=== PATIENT | female | born 1975 | race Caucasian/White ===

== ENCOUNTER 2017-07-15 17:22 | Emergency (ER) | payer BC | END 2017-07-15 17:49 | disposition home or self-care (01) | LOC: SCSER 17:22 | DX: M54.2 Cervicalgia (principal) | CPT/HCPCS: 99283 ==

== ENCOUNTER 2018-01-24 13:04 | Outpatient (CLI) | payer BC | END 2018-01-24 13:05 | disposition home or self-care (01) | LOC: BICMAMMO 13:04 | PROVIDERS: ATTEND Obstetrics & Gynecology | DX: Z12.31 Encounter for screening mammogram for malignant neoplasm of breast (principal); Z80.3 Family history of malignant neoplasm of breast | CPT/HCPCS: 77063; 77067 ==

== ENCOUNTER 2018-03-01 09:11 | Outpatient (CLI) | payer BC ==
[2018-03-01 11:19] LABS: #Eosinphils 0.1 thou/uL (0.0-0.7); #Lymphocytes 1.4 thou/uL (1.20-3.40); #Monocytes 0.3 thou/uL (0.11-0.59); #Neutrophils 1.6 thou/uL (1.40-6.50); %Eosinophils 4.2 % (0.0-10.0); %Monocytes 7.9 % (0.0-10.0); Hemoglobin 13.7 g/dL (12.0-16.0); Mean Corpuscular HGB CONC 31.8 g/dL (32.0-36.0); Mean Corpuscular Hemoglobin 29.3 pg (27.0-31.0); Mean Corpuscular Volume 92.2 fL (78.0-98.0); Mean Platelet Volume 9.5 fL (7.4-10.4); Platelet Count 154 thou/uL (130-400); RBC Distribution Width 12.2 % (11.5-14.5); Red Blood Cell (RBC) Count 4.69 mill/uL (4.20-5.40); White Blood Cell (WBC) Count 3.5 thou/uL (4.8-10.8)
[2018-03-01 11:26] LABS: BHCG - Serum Negative (NEGATIVE); Pregs Control Background? CLEAR/WHITE (CLR/WHITE); Pregs Control Bar Appear? YES (CONTROL BAR)
[2018-03-01 11:38] LABS: ALT (SGPT) 9 U/L (8-55); AST (SGOT) 18 U/L (5-34); Albumin 4.6 g/dL (3.5-5.0); Alkaline Phosphatase 41 U/L (40-150); Anion Gap 11 mmol/L (10-20); BUN (Urea Nitrogen) 12 mg/dL (7.0-18.7); Bilirubin, Total 0.7 mg/dL (0.2-1.2); Calc. Creatinine Clearance 0 mL/min (70-130); Calcium 9.7 mg/dL (7.8-10.44); Carbon Dioxide 28 mmol/L (22-29); Chloride 103 mmol/L (98-107); Estimated GFR-MDRD 81; Glucose 76 mg/dL (70-105); Protein, Total 7.6 g/dL (6.0-8.3); Sodium 138 mmol/L (136-145)
== END 2018-03-01 09:12 | disposition home or self-care (01) ==
LOC: LABBT 09:11
PROVIDERS: ATTEND Specialist
DX: Z01.812 Encounter for preprocedural laboratory examination (principal); C50.911 Malignant neoplasm of unspecified site of right female breast; Z17.0 Estrogen receptor positive status [ER+]
CPT/HCPCS: 80053; 84703; 85025

== ENCOUNTER 2018-03-06 07:57 | Day surgery (SDC) | payer BC ==
[2018-03-01 09:41] VITALS: BMI 20.8
[2018-03-06] MEDS ORDERED: Ketorolac Tromethamine 30 MG/ML VIAL ONE (09:37)
[2018-03-06] MEDS ORDERED: CEFAZOLIN/Water 2 GM/20 ML SYRINGE ONE (09:37)
--- NOTE | 2018-03-06 10:01 | NM ---
RIGHT BREST LYMPHOSCINTIGRAPHY: INDICATION: Malignant neoplasm right female breast. RADIOPHARMACEUTICAL: 0.405 mCi Technetium 99m filtered SC subcutaneous. TECHNIQUE: Four separate aliquots utilizing a total of 0.405 mCi of Technetium 99m filtered SC SQ was administer ed around the right nipple-areolar complex. The injections were massaged by the patient. Planar danielle ges were obtained until identification of 1 right lateral intramammary lymph node and 2 separate ante rior right axillary lymph nodes. IMPRESSION: 1. Successful lymphoscintrigraphy of the right breast. 2. Radiotracer accumulation within a far right lateral intramammary lymph node and two anterior right axillary lymph nodes. POS: [facility]
[2018-03-06] MEDS ORDERED: Bupivacaine/Epinephrine 0.25% 30 ML VIAL ONE ×2 (11:34→13:26)
[2018-03-06] MEDS ORDERED: Isosulfan Blue 50 MG/5 ML VIAL ONE (12:08)
[2018-03-06] MEDS ORDERED: PROPOFOL 200 MG/20 ML VIAL ONE (12:21)
[2018-03-06] MEDS ORDERED: Ondansetron HCl/PF 4 MG/2 ML Vial ONE (12:21)
[2018-03-06] MEDS ORDERED: Lidocaine 1% PF 5 ML VIAL ONE (12:21)
[2018-03-06] MEDS ORDERED: Fentanyl 100 MCG/2 ML VIAL ONE (12:22)
[2018-03-06] MEDS ORDERED: Promethazine HCl 25 MG/ML VIAL ONE (15:37)
--- NOTE | 2018-03-07 11:01 | OP ---
DATE OF PROCEDURE: 03/06/2018 PREOPERATIVE DIAGNOSIS: Right breast cancer. POSTOPERATIVE DIAGNOSIS: Right breast cancer. OPERATION PERFORMED: Right ultrasound-guided lumpectomy, right axillary sentinel lymph node biopsy, oncoplastic closure with 100 cm2 rotation flap. SURGEON: Theodore Grubbs M.D. ANESTHESIA: General endotracheal. INDICATIONS: The patient is a 42-year-old white female. She was diagnosed with clinical stage I rig ht breast cancer. The cancer; however, is in the far upper pole of her right breast at about the 12 o'clock radian. I have therefore recommended excision with oncoplastic closure in order to be able t o rotate tissue into the defect. DESCRIPTION OF OPERATION: Informed consent was obtained. The patient was taken to the operating abril m. She had already undergone lymphoscintigraphy which identified sentinel lymph nodes. The right br east was infiltrated with 3 mL of Lymphazurin with massage of the breast for 5 minutes. The right br east and axilla were then prepped with ChloraPrep and draped in sterile fashion. The incisions were marked on the skin and local anesthetic was infiltrated using 0.25% Marcaine with epinephrine. The area of the malignancy in the upper right breast which was marked on the skin as well in order to appropriately fashion the incisions for the excision of the lesion. An incision was created that was an arcing incision from the axilla to the 12 o'clock radian that was about 12 cm in length. I then created a triangular incision overlying the malignancy that was 8 cm on its legs and 5 cm across the base. Finally, I created a triangular incision in the axilla that wa s also 5 cm in its base and the legs were between 5 and 6 cm extending laterally towards the posterio r axilla. Attention was then turned to the axilla. The skin and the triangular dart in the axilla was excised. Neoprobe was utilized to identify areas of maximum radio intensity within the axilla. Dissection w ithin the axilla revealed 3 separate lymph nodes that were both radial intense and stained with blue dye. These were each isolated, dissected circumferentially, and excised. All investing lymphatics w ere divided between clamps and 3-0 silk ties. There were no other areas of significant radioactivity within the axilla. Attention was then turned to the area of the malignancy. The triangle incorporating the malignancy w as excised onto the fascia. The fascia was then excised in continuity with the tissue due to the dep th of the lesion. The specimen was removed intact and tagged for orientation. There was no evidence of visible or palpable malignancy in any margin. The arcing incision was then dissected down to the fascia and the matrix of the breast tissue was lowell vated off the underlying pectoral fascia widely extending inferiorly. The axillary tissue was also m obilized laterally. Efforts were made to avoid dividing all lymphatics between the breast and the ax illa. After full mobilization, closure was performed by rotating the breast tissue in a clockwise fashion. The deep layers were closed with interrupted sutures of 3-0 Vicryl followed by running sutures of 3- 0 Vicryl. The skin edges approximated with running subcuticular suture of 4-0 Monocryl. A 10-Cypriot round fluted drain was placed in the space between the breast and the pectoralis and brought out lat erally and secured with 3-0 nylon suture. Dermabond was placed over all skin incisions. Sadiq wrap wa s placed for compression. There were no complications. Blood loss was minimal. The patient tolerat ed the procedure well and was taken to recovery room in stable condition.
== END 2018-03-06 16:28 | disposition home or self-care (01) ==
LOC: SDC 07:57
PROVIDERS: ATTEND Specialist
PROC: 07B50ZX Excision of Right Axillary Lymphatic, Open Approach, Diagnostic (ICD-10-PCS; principal; 2018-03-06)
PROC: 0HBT0ZZ Excision of Right Breast, Open Approach (ICD-10-PCS; principal; 2018-03-06)
PROC: 0HRT07Z Replacement of Right Breast with Autologous Tissue Substitute, Open Approach (ICD-10-PCS; principal; 2018-03-06)
PROC: 0JX60ZC Transfer Chest Subcutaneous Tissue and Fascia with Skin, Subcutaneous Tissue and Fascia, Open Approach (ICD-10-PCS; principal; 2018-03-06)
DX: C50.811 Malignant neoplasm of overlapping sites of right female breast (principal); G43.909 Migraine, unspecified, not intractable, without status migrainosus; Z79.899 Other long term (current) drug therapy; Z17.0 Estrogen receptor positive status [ER+]
CPT/HCPCS: 78195; 88305; 88307; 88333; 88334; 88342; 96374; A9541; J0131; J1885; J2001; J2405; J2550; J2704; J3010; Q9968

== ENCOUNTER 2018-07-07 10:37 | Outpatient (CLI) | payer BC ==
--- NOTE | 2018-07-07 12:39 | CT ---
CT SINUSES PERFORMED WITHOUT CONTRAST ENHANCEMENT: HISTORY: Chronic sinusitis. FINDINGS: The frontal sinuses are clear. The frontal recess regions are normal. The uncinate process is elongated. Low lying anterior ethmoid air cells contribute to some mild osti omeatal complex narrowing. There is no evidence of any mucosal change related to the maxillary sinus es. The posterior ethmoid air cells, the sphenoid sinuses, and the sphenoethmoid recess regions are clear. IMPRESSION: 1. No evidence of any mucosal disease or air-fluid levels. 2. Slightly narrowed ostiomeatal complex. POS: [facility]
== END 2018-07-07 10:38 | disposition home or self-care (01) ==
LOC: SCSCT 10:37
PROVIDERS: ATTEND Allergy & Immunology
DX: J32.9 Chronic sinusitis, unspecified (principal)

== ENCOUNTER 2019-03-06 08:08 | Outpatient (CLI) | payer BC ==
--- NOTE | 2019-03-06 08:48 | MMO ---
Bilateral MAMMO Bilat Diag DDI+JAE. CLINICAL HISTORY: Patient is 43 years old and is seen for diagnostic exam. The patient has the following family history of breast cancer: mother, at age 59. The patient has a history of malignant (generic) in the right breast in February,. The patient has a history of right Excisional Biopsy in 2018 - malignant. VIEWS: The views performed were: bilateral craniocaudal with tomosynthesis; bilateral mediolateral oblique with tomosynthesis; and bilateral mediolateral with tomosynthesis. FILMS COMPARED: The present examination has been compared to prior imaging studies performed at [facility] on 01/24/2018 and 02/10/2018. This study has been interpreted with the assistance of computer-aided detection. MAMMOGRAM FINDINGS: The breasts are heterogeneously dense, which could obscure a lesion on mammography. There is an area of skin thickening, an area of trabecular thickening, an area of architectural distortion and a post-surgical scar seen in the right breast. There are no suspicious masses, suspicious calcifications, or new areas of architectural distortion. IMPRESSION: THERE IS NO MAMMOGRAPHIC EVIDENCE OF MALIGNANCY. THE PATIENT WAS INFORMED OF THE EXAM RESULTS. A ROUTINE FOLLOW-UP MAMMOGRAM IN 1 YEAR IS RECOMMENDED. THE RESULTS OF THIS EXAM WERE SENT TO THE PATIENT. ACR BI-RADS Category 2 - Benign finding MAMMOGRAPHY NOTE: 1. A negative mammogram report should not delay a biopsy if a dominant of clinically suspicious mass is present. 2. Approximately 10% to 15% of breast cancers are not detected by mammography. 3. Adenosis and dense breasts may obscure an underlying neoplasm. Reported by: HOLLIS GAMBINO MD Electonically Signed: [id number]
== END 2019-03-06 08:09 | disposition home or self-care (01) ==
LOC: BICMAMMO 08:08
PROVIDERS: ATTEND Specialist
DX: C50.911 Malignant neoplasm of unspecified site of right female breast (principal)
CPT/HCPCS: 77066; G0279

== ENCOUNTER 2020-03-07 09:20 | Outpatient (CLI) | payer BC ==
--- NOTE | 2020-03-07 09:54 | MMO ---
Bilateral MAMMO Bilat Diag DDI+JAE. CLINICAL HISTORY: Patient is 44 years old and is seen for diagnostic exam. The patient has the following family history of breast cancer: mother, at age 59. The patient has a history of malignant (generic) in the right breast in February,. The patient has a history of right Excisional Biopsy in 2018 - malignant. VIEWS: The views performed were: bilateral craniocaudal with tomosynthesis; bilateral mediolateral oblique with tomosynthesis; and bilateral mediolateral with tomosynthesis. FILMS COMPARED: The present examination has been compared to prior imaging studies performed at [facility] on 01/24/2018, 02/10/2018 and 03/06/2019. This study has been interpreted with the assistance of computer-aided detection. MAMMOGRAM FINDINGS: The breasts are heterogeneously dense, which could obscure a lesion on mammography. There is a stable area of skin thickening and a stable post operative change seen in the right breast. There are no suspicious masses, suspicious calcifications, or new areas of architectural distortion. IMPRESSION: THERE IS NO MAMMOGRAPHIC EVIDENCE OF MALIGNANCY. THE FINDINGS AND RECOMMENDATIONS WERE DISCUSSED WITH THE PATIENT PRIOR TO HER LEAVING THE CENTER. A ROUTINE FOLLOW-UP MAMMOGRAM IN 1 YEAR IS RECOMMENDED. THE RESULTS OF THIS EXAM WERE SENT TO THE PATIENT. ACR BI-RADS Category 2 - Benign finding MAMMOGRAPHY NOTE: 1. A negative mammogram report should not delay a biopsy if a dominant of clinically suspicious mass is present. 2. Approximately 10% to 15% of breast cancers are not detected by mammography. 3. Adenosis and dense breasts may obscure an underlying neoplasm. Reported by: HOLLIS GAMBINO MD Electonically Signed: [id number]
== END 2020-03-07 09:21 | disposition home or self-care (01) ==
LOC: BICMAMMO 09:20
PROVIDERS: ATTEND Specialist
DX: C50.911 Malignant neoplasm of unspecified site of right female breast (principal)
CPT/HCPCS: 77066; G0279

== ENCOUNTER 2021-03-09 08:12 | Outpatient (CLI) | payer BC | END 2021-03-09 08:13 | disposition home or self-care (01) | LOC: BICMAMMO 08:12 | PROVIDERS: ATTEND Specialist | DX: Z08 Encounter for follow-up examination after completed treatment for malignant neoplasm (principal); Z85.3 Personal history of malignant neoplasm of breast | CPT/HCPCS: 77066; G0279 ==

== ENCOUNTER 2022-03-10 08:44 | Outpatient (CLI) | payer BC | END 2022-03-10 08:45 | disposition home or self-care (01) | LOC: BICMAMMO 08:44 | PROVIDERS: ATTEND Specialist | DX: Z12.31 Encounter for screening mammogram for malignant neoplasm of breast (principal); Z80.3 Family history of malignant neoplasm of breast; Z85.3 Personal history of malignant neoplasm of breast; Z91.89 Other specified personal risk factors, not elsewhere classified | CPT/HCPCS: 77063; 77067 ==

== ENCOUNTER 2022-03-24 10:08 | Outpatient (CLI) | payer BC ==
[2022-03-24 15:16] LABS: #Eosinphils 0.1 thou/uL (0.0-0.7); #Lymphocytes 1.7 thou/uL (1.20-3.40); #Monocytes 0.4 thou/uL (0.11-0.59); #Neutrophils 1.6 thou/uL (1.40-6.50); %Basophils 0.7 % (0.0-1.0); %Eosinophils 3.2 % (0.0-10.0); %Lymphocytes 43.5 % (21.0-51.0); %Monocytes 10.1 % (0.0-10.0); %Neutrophils 42.4 % (42.0-75.0); Hemoglobin 14.3 g/dL (12.0-16.0); Mean Corpuscular HGB CONC 32.5 g/dL (32.0-36.0); Mean Corpuscular Hemoglobin 31.6 pg (27.0-31.0); Mean Platelet Volume 9.8 fL (7.4-10.4); Platelet Count 149 thou/uL (130-400); RBC Distribution Width 11.8 % (11.5-14.5); Red Blood Cell (RBC) Count 4.54 mill/uL (4.20-5.40); White Blood Cell (WBC) Count 3.9 thou/uL (4.8-10.8)
[2022-03-24 15:17] LABS: Bilirubin Negative (Negative); Blood, Urine Negative (Negative); Clarity Turbid (Clear); Glucose, Urine (Dipstick) Normal (Negative); Ketone, Urine Negative (Negative); Leukocyte Negative Leu/uL (Negative); Nitrite Negative (Negative); Protein, Urine (Dipstick) 10 mg/dL (Neg-Trace); Specific Gravity, Urine 1.022 (1.002-1.036); Squamous Epithelial 21-50 HPF (0-3); Urobilinogen Normal mg/dL (Less than 2); WBC/HPF 0-3 HPF (0-3); pH, Urine 5.5 (5.0-9.0)
[2022-03-24 15:26] LABS: Bacteria/HPF 1+ HPF (None Seen); RBC/HPF 0-3 HPF (0-3)
[2022-03-24 15:28] LABS: Sperm/HPF Rare HPF (None Seen)
[2022-03-24 18:21] LABS: ALT (SGPT) 12 U/L (8-55); AST (SGOT) 20 U/L (5-34); Albumin 4.4 g/dL (3.5-5.0); Alkaline Phosphatase 43 U/L (40-110); Anion Gap 14 mmol/L (10-20); BUN (Urea Nitrogen) 9 mg/dL (7.0-18.7); Bilirubin, Total 0.8 mg/dL (0.2-1.2); Calc. Creatinine Clearance 0 mL/min (70-130); Calcium 9.7 mg/dL (7.8-10.44); Carbon Dioxide 26 mmol/L (22-29); Cardiac Risk 3.5 (Less than 4.5); Chloride 105 mmol/L (98-107); Cholesterol 217 mg/dl (< 200 Desired); Estimated GFR 88; Globulin 2.7 g/dL (2.4-3.5); Glucose 99 mg/dL (70-105); HDL Cholesterol 62 mg/dL (>60 Neg Risk); LDL Cholesterol, Calculated 133 mg/dL; Potassium 4.7 mmol/L (3.5-5.1); Protein, Total 7.1 g/dL (6.0-8.3); Sodium 140 mmol/L (136-145); Triglycerides 112 mg/dL (Less than 150)
[2022-03-24 22:57] LABS: Thyroid Stimulating Hormone 1.2409 uIU/mL (0.35-4.94); Vitamin D, 25 Hydroxy 39.6 ng/ml (> 30.0)
== END 2022-03-24 10:09 | disposition home or self-care (01) ==
LOC: SCSRAD 10:08
PROVIDERS: ATTEND Family Medicine
DX: Z00.00 Encounter for general adult medical examination without abnormal findings (principal); M54.2 Cervicalgia; E55.9 Vitamin D deficiency, unspecified; M47.812 Spondylosis without myelopathy or radiculopathy, cervical region
CPT/HCPCS: 36415; 72040; 80053; 80061; 81001; 82306; 84443; 85025

== ENCOUNTER 2023-04-04 08:54 | Outpatient (CLI) | payer BC | END 2023-04-04 08:55 | disposition home or self-care (01) | LOC: BICMAMMO 08:54 | PROVIDERS: ATTEND Specialist | DX: Z12.31 Encounter for screening mammogram for malignant neoplasm of breast (principal); Z80.3 Family history of malignant neoplasm of breast; Z85.3 Personal history of malignant neoplasm of breast; Z98.890 Other specified postprocedural states | CPT/HCPCS: 77063; 77067 ==

== ENCOUNTER 2024-04-06 09:11 | Outpatient (CLI) | payer BC | END 2024-04-06 09:12 | disposition home or self-care (01) | LOC: BICMAMMO 09:11 | PROVIDERS: ATTEND Internal Medicine Hematology & Oncology | DX: Z12.31 Encounter for screening mammogram for malignant neoplasm of breast (principal); Z85.3 Personal history of malignant neoplasm of breast; Z80.3 Family history of malignant neoplasm of breast | CPT/HCPCS: 77063; 77067 ==

== ENCOUNTER 2024-05-24 09:45 | Outpatient (CLI) | payer BC | END 2024-05-24 09:46 | disposition home or self-care (01) | LOC: RAD 09:45 | PROVIDERS: ATTEND Otolaryngology Otolaryngic Allergy | DX: R13.11 Dysphagia, oral phase (principal); R13.12 Dysphagia, oropharyngeal phase; R63.30 Feeding difficulties, unspecified; M25.78 Osteophyte, vertebrae | CPT/HCPCS: 74230 ==